=== PATIENT | female | born 1990 | race Caucasian/White ===

== ENCOUNTER 2018-11-07 21:20 | Emergency (ER) | payer OTHER | END 2018-11-07 22:23 | disposition other institution (70) | LOC: ED 21:20 | DX: Z02.89 Encounter for other administrative examinations (principal) ==

== ENCOUNTER 2018-11-07 21:20 | Emergency (ER) | payer OTHER ==
[~2018-11-07] VITALS: Ht 170.2 cm; Wt 68.0 kg
[2018-11-07 21:38] VITALS: Ht 170.2 cm; Wt 68.0 kg
[2018-11-07 22:23] VITALS: BP 110/85
== END 2018-11-07 22:23 | disposition other institution (70) ==
LOC: ED 21:20
DX: S42.001A Fracture of unspecified part of right clavicle, initial encounter for closed fracture (principal); S09.8XXA Other specified injuries of head, initial encounter; Y04.8XXA Assault by other bodily force, initial encounter; Y93.89 Activity, other specified; Y92.89 Other specified places as the place of occurrence of the external cause; Y99.8 Other external cause status